=== PATIENT | male | born 1945 | race Caucasian/White ===

== ENCOUNTER → 2017-08-15 | Outpatient (CLI) | payer BC ==
--- NOTE | 2017-08-15 12:26 | DIAGNOSTIC IMAGING REPORT ---
TWO VIEW CHEST CLINICAL HISTORY: Cough. FINDINGS: PA and lateral chest radiographs are compared to study dated 03/12/2014. The heart is mildly enlarged. The pulmonary vasculature is noncongested. Findings suggest obstructive physiology. Chronic interstitial thickening is similar to previous. No airspace consolidation or pleural effusion is identified. There is no pneumothorax. The skeletal structures are osteopenic. There are healed right sided rib fractures Peter arthritic change is noted in the shoulders. IMPRESSION: Cardiac enlargement and suspect obstructive physiology. There is no active disease in the chest. Electronically signed by: Adi Reyes M.D. 08/15/2017 12:24 PM Dictated Date/Time: 08/15/2017 12:23 PM
== END | disposition home or self-care (01) ==
LOC: C.RAD 12:04
PROVIDERS: ATTEND Family Medicine
DX: R05 Cough (principal); I51.7 Cardiomegaly

== ENCOUNTER 2020-10-12 18:38 | Observation (INO) ==
[2020-10-12] MEDS ORDERED: HYDROcodone/HOMATROPINE SYRUP 5MG/1.5MG 5ML UDP PO STA (19:12)
[2020-10-12] MEDS ORDERED: ALBUTEROL HFA 8 GM INHALER INH ONE (19:12)
[2020-10-12] MEDS ORDERED: ONDANSETRON INJ 2 MG/ML 2 ML VIAL IV STA (19:12)
[2020-10-12] MEDS ORDERED: DEXAMETHASONE SOD INJ 10 MG/ML VIAL IV ONE (19:15)
[2020-10-12 20:10] LABS: Basophils # (auto) 0.06 K/uL (0-0.2); Basophils % (auto) 0.8 %; Eosinophils # (auto) 0.09 K/uL (0-0.5); Eosinophils % (auto) 1.2 %; Hematocrit (blood only) 40.5 % (42-52); Hemoglobin 13.5 g/dL (14.0-18.0); Immature Granulocytes # (auto) 0.03 K/uL (0.00-0.02); Immature Granulocytes % (auto) 0.4 %; Lymphocytes # (auto) 2.15 K/uL (1.2-3.4); Lymphocytes % (auto) 29.8 %; Mean Corpuscular Hemoglobin 28.9 pg (25-34); Mean Corpuscular Hgb Conc 33.3 g/dL (32-36); Mean Corpuscular Volume 86.7 fL (80-100); Mean Platelet Volume 10.3 fL (7.4-10.4); Monocytes # (auto) 0.92 K/uL (0.11-0.59); Monocytes % (auto) 12.7 %; Neutrophils # (auto) 3.97 K/uL (1.4-6.5); Neutrophils % (auto) 55.1 %; Platelet Count 167 K/uL (130-400); RDW Coefficient of Variation 13.6 % (11.5-14.5); RDW Standard Deviation 43.2 fL (36.4-46.3); Red Blood Count 4.67 M/uL (4.7-6.1); White Blood Count 7.22 K/uL (4.8-10.8)
[2020-10-12 20:28] LABS: Alanine Aminotransferase 52 U/L (12-78); Albumin Level 3.3 gm/dl (3.4-5.0); Aspartate Aminotransferase 26 U/L (15-37); BUN Creatinine Ratio 21.5 (10-20); Blood Urea Nitrogen 23 mg/dl (7-18); Calcium 8.9 mg/dl (8.5-10.1); Carbon Dioxide 27 mmol/L (21-32); Chloride 103 mmol/L (98-107); Creatinine Clr Calc Pharmacy 69.9 ml/min; Est GFR (Non-African American) 67.3; Glucose 128 mg/dl (70-99); Potassium 4.7 mmol/L (3.5-5.1); Sodium 135 mmol/L (136-145)
[2020-10-12 20:33] LABS: Albumin Globulin Ratio 0.7 (0.9-2); Alkaline Phosphatase 120 U/L (45-117); Bilirubin,Total 0.7 mg/dl (0.2-1); Globulin 4.4 gm/dl (2.5-4.0); Total Protein 7.7 gm/dl (6.4-8.2); Troponin I < 0.015 ng/ml (0-0.045)
--- NOTE | 2020-10-12 20:45 | Emergency Department Note ---
Impression & Plan COVID-19 virus infection, SOB (shortness of breath) ED Provider Note INFORMANT: Patient ED PROVIDER(S): Ahsan Strong MD CHIEF COMPLAINT: Fever PLAN: Disposition: Admitted Condition: Good MEDICAL DECISION MAKING: Patient presented to the emergency department because of worsening flulike symptoms. He was diagnosed with COVID-19. He feels like he is more short of breath and getting worse. He had O2 saturations of 92% on my evaluation. With several deep breaths and coughing he did move up to 95%. He had an IV established. ECG did not show any ischemia. Chest x-ray does show some mild pneumonitis in the bases. The patient was given IV Decadron, albuterol MDI, Hycodan, and Zofran. Patient declined Hycodan. Patient's ECG was nonischemic. CBC was unremarkable. Chemistry panel revealed mild dehydration. Troponin was negative. Repeat Covid testing was requested by internal medicine this was done and was positive. The patient will need to be admitted for further treatment. He was evaluated by Dr. Fransisco Reaves in the emergency department and admitted. Triage Nursing notes reviewed and agree them. Prior medical records reviewed regarding his prior visits. CT study from last visit did not reveal any thromboembolic disease. Vital Signs: reviewed and remarkable for a pulse oximetry of 92% Differential diagnosis: Complication of COVID-19, reactive airway disease, pneumonia, pneumothorax, COPD, CHF, infections, cardiac ischemia, pulmonary embolism, musculoskeletal, gastrointestinal, as well as other pathologies. Diagnostics interpreted by me: ECG:Rate: 87 Rhythm:Normal sinus Bonaparte:Normal QRS:Normal ST segements:No elevation or depression Other:No PACs or PVCs Cardiac Monitoring: None Imaging studies: Chest x-ray reveals mild pneumonitis. No free air. No mediastinum. No pneumothorax. Consultation(s): [facility] service HPI: The patient is a 74 year old male who presents to the Emergency Room with complaints of fever. This started last week and is from the patient being diagnosed with COVID-19. He states he feels like he is getting worse. He has more difficulty breathing. He feels short of breath and has chest discomfort with nausea. He has dyspnea on exertion. Despite being treated conservatively as an outpatient and having 2 ER visits he is feeling worse. The patient was seen in the emergency department a second time and CT scan was performed. No thromboembolic disease was noted. Mild changes consistent with viral pneumonitis noted. Current pain is rated as 6/10. Pt denies LOC, headache, diaphoresis, visual changes, neck pain, vomiting, abdominal pain, back pain, melena, hematochezia, urinary symptoms, numbness, weakness, lymphadenopathy, rash, or other complaints. ROS: See above HPI for pertinent positives & negatives. A total of 10 systems reviewed and were otherwise negative. PAST MEDICAL HISTORY:See Below, GERD PAST SURGICAL HISTORY:See Below, FAMILY HISTORY:See Below SOCIAL HISTORY:See Below, HOME MEDICATIONS:See Below ALLERGIES:See Below VITALS:See Below PHYSICAL EXAMINATION: GENERAL: Awake, alert, dyspneic-appearing, in no distress HENT: Normocephalic, atraumatic. Oropharynx unremarkable. EYES: Normal conjunctiva. Sclera non-icteric. NECK: Inspection normal. Non-tender. Supple. No nuchal rigidity. FROM. No masses. RESPIRATORY: Coarse breath sounds. No wheezes. No rales. Increased respiratory effort. CARDIAC: Normal rate. Normal rhythm. No murmurs. No rubs. Extremities warm and well perfused. Pulses equal. No JVD. GI: Soft, non-distended. No tenderness to palpation. No rebound or guarding. No masses. RECTAL: Deferred. MUSCULOSKELETAL: Atraumatic. Chest examination reveals no tenderness. The back is symmetrical on inspection without obvious abnormality. There is no CVA tenderness to palpation. No joint edema. LOWER EXTREMITIES: Calves are equal size bilaterally and non-tender. No edema. No discoloration. NEURO: Normal sensorium. No sensory or motor deficits noted. SKIN: No rash or jaundice noted. Ahsan Strong MD Past Med/Surg History Medical History (Updated 10/12/20 @ 20:41 by Ahsan Strong MD) Chronic back pain Enlarged prostate Prostate enlargement Family History Other Family history non-contributory Social History Smoking Status: Former smoker Hx Alcohol Use: No Preferred Language: Malaysian marital status: current occupational status: retired Feels Safe at Home: Yes Allergies Allergies Allergy/AdvReac Type Severity Reaction Status Date / Time Sulfa (Sulfonamide Allergy Unknown Unknown Verified 10/12/20 20:08 Antibiotics) codeine Allergy Unknown Verified 10/12/20 20:08 red dye AdvReac Mild Nausea Verified 10/12/20 20:08 Home Meds Home Medications Medication Instructions Recorded Confirmed omeprazole 20 mg PO HS 07/22/18 10/12/20 trazodone 50 mg PO HS 07/22/18 10/12/20 [id number] 2 tab PO UD PRN 09/30/20 10/12/20 [Excedrin Migraine] Previous Rx's Medication Instructions Recorded albuterol sulfate 2 puff INHALATION Q4H PRN #6.7 g 10/06/20 Results & Data (ED) Vital Signs Vital Signs - 24 hr 10/12/20 18:40 10/12/20 19:00 10/12/20 19:29 Temperature 37.2 C Temperature Source Skin Pulse Rate 107 H 82 Pulse Rate [Apical] Pulse Rate from SpO2 Sensor 82 Respiratory Rate 22 19 Respiratory Depth Normal Blood Pressure 158/97 H Blood Pressure [Left Arm] Blood Pressure Mean 117 Blood Pressure Mean [Left Arm] Pulse Oximetry 95 92 93 Oxygen Delivery Method Room Air Room Air Room Air Sepsis Recent Fever Within 48 Hours Yes Sepsis New/Unexplained Change in Mental Status N/A Sepsis Action Taken by Nursing No Action Required 10/12/20 20:10 10/12/20 20:30 10/12/20 21:09 Temperature 38.1 C H Temperature Source Oral Pulse Rate 91 H Pulse Rate [Apical] Pulse Rate from SpO2 Sensor 90 100 H Respiratory Rate 22 20 Respiratory Depth Blood Pressure 131/78 Blood Pressure [Left Arm] Blood Pressure Mean 88 Blood Pressure Mean [Left Arm] Pulse Oximetry 94 93 Oxygen Delivery Method Room Air Room Air Sepsis Recent Fever Within 48 Hours Sepsis New/Unexplained Change in Mental Status Sepsis Action Taken by Nursing 10/12/20 21:12 10/12/20 21:30 10/12/20 22:01 Temperature Temperature Source Pulse Rate 87 99 H Pulse Rate [Apical] 94 H Pulse Rate from SpO2 Sensor 88 Respiratory Rate 22 21 22 Respiratory Depth Blood Pressure 126/75 154/93 H Blood Pressure [Left Arm] 122/66 Blood Pressure Mean 100 131 Blood Pressure Mean [Left Arm] 84 Pulse Oximetry 93 93 Oxygen Delivery Method Room Air Room Air Room Air Sepsis Recent Fever Within 48 Hours Sepsis New/Unexplained Change in Mental Status Sepsis Action Taken by Nursing 10/12/20 22:30 10/12/20 22:38 10/12/20 23:12 Temperature 37.6 C H Temperature Source Oral Pulse Rate 91 H Pulse Rate [Apical] 88 Pulse Rate from SpO2 Sensor Respiratory Rate 18 20 Respiratory Depth Blood Pressure 132/80 Blood Pressure [Left Arm] 140/92 Blood Pressure Mean 100 Blood Pressure Mean [Left Arm] 108 Pulse Oximetry 93 Oxygen Delivery Method Room Air Room Air Sepsis Recent Fever Within 48 Hours Sepsis New/Unexplained Change in Mental Status Sepsis Action Taken by Nursing 10/13/20 00:26 Temperature Temperature Source Pulse Rate Pulse Rate [Apical] 84 Pulse Rate from SpO2 Sensor Respiratory Rate 20 Respiratory Depth Blood Pressure Blood Pressure [Left Arm] 134/81 Blood Pressure Mean Blood Pressure Mean [Left Arm] 98 Pulse Oximetry 94 Oxygen Delivery Method Room Air Sepsis Recent Fever Within 48 Hours Sepsis New/Unexplained Change in Mental Status Sepsis Action Taken by Nursing Laboratory Data Result diagrams: 10/12/20 19:41 10/12/20 19:41 Lab Results 10/12/20 10/12/20 10/12/20 Range/Units 19:41 19:41 19:41 WBC 7.22 (4.8-10.8) K/uL RBC 4.67 L (4.7-6.1) M/uL Hgb 13.5 L (14.0-18.0) g/dL Hct 40.5 L (42-52) % MCV 86.7 (80-100) fL MCH 28.9 (25-34) pg MCHC 33.3 (32-36) g/dL RDW Std Deviation 43.2 (36.4-46.3) fL RDW Coeff of Ml 13.6 (11.5-14.5) % Plt Count 167 (130-400) K/uL MPV 10.3 (7.4-10.4) fL Immature Gran % (Auto) 0.4 % Neut % (Auto) 55.1 % Lymph % (Auto) 29.8 % [place] % (Auto) 12.7 % Eos % (Auto) 1.2 % Baso % (Auto) 0.8 % Neut # (Auto) 3.97 (1.4-6.5) K/uL Lymph # (Auto) 2.15 (1.2-3.4) K/uL [place] # (Auto) 0.92 H (0.11-0.59) K/uL Eos # (Auto) 0.09 (0-0.5) K/uL Baso # (Auto) 0.06 (0-0.2) K/uL Immature Gran # (Auto) 0.03 H (0.00-0.02) K/uL Sodium 135 L (136-145) mmol/L Potassium 4.7 (3.5-5.1) mmol/L Chloride 103 (98-107) mmol/L Carbon Dioxide 27 (21-32) mmol/L Anion Gap 5.0 (3-11) BUN 23 H (7-18) mg/dl Creatinine 1.08 (0.6-1.4) mg/dl Est Cr Clr Drug Dosing 69.9 ml/min Est GFR ( Amer) 78.0 Est GFR (Non-Af Amer) 67.3 BUN/Creatinine Ratio 21.5 H (10-20) Glucose 128 H (70-99) mg/dl Calcium 8.9 (8.5-10.1) mg/dl Total Bilirubin 0.7 (0.2-1) mg/dl AST 26 (15-37) U/L ALT 52 (12-78) U/L Alkaline Phosphatase 120 H (45-117) U/L Troponin I < 0.015 (0-0.045) ng/ml Total Protein 7.7 (6.4-8.2) gm/dl Albumin 3.3 L (3.4-5.0) gm/dl Globulin 4.4 H (2.5-4.0) gm/dl Albumin/Globulin Ratio 0.7 L (0.9-2) Procalcitonin 0.19 (0-0.5) ng/ml COVID-19 Eval Order SARS-CoV-2, RNA, NAAT (NEGATIVE) Blood Type Antibody Screen 10/12/20 10/12/20 10/12/20 Range/Units 21:13 23:22 23:22 WBC (4.8-10.8) K/uL RBC (4.7-6.1) M/uL Hgb (14.0-18.0) g/dL Hct (42-52) % MCV (80-100) fL MCH (25-34) pg MCHC (32-36) g/dL RDW Std Deviation (36.4-46.3) fL RDW Coeff of Ml (11.5-14.5) % Plt Count (130-400) K/uL MPV (7.4-10.4) fL Immature Gran % (Auto) % Neut % (Auto) % Lymph % (Auto) % [place] % (Auto) % Eos % (Auto) % Baso % (Auto) % Neut # (Auto) (1.4-6.5) K/uL Lymph # (Auto) (1.2-3.4) K/uL [place] # (Auto) (0.11-0.59) K/uL Eos # (Auto) (0-0.5) K/uL Baso # (Auto) (0-0.2) K/uL Immature Gran # (Auto) (0.00-0.02) K/uL Sodium (136-145) mmol/L Potassium (3.5-5.1) mmol/L Chloride (98-107) mmol/L Carbon Dioxide (21-32) mmol/L Anion Gap (3-11) BUN (7-18) mg/dl Creatinine (0.6-1.4) mg/dl Est Cr Clr Drug Dosing ml/min Est GFR ( Amer) Est GFR (Non-Af Amer) BUN/Creatinine Ratio (10-20) Glucose (70-99) mg/dl Calcium (8.5-10.1) mg/dl Total Bilirubin (0.2-1) mg/dl AST (15-37) U/L ALT (12-78) U/L Alkaline Phosphatase (45-117) U/L Troponin I (0-0.045) ng/ml Total Protein (6.4-8.2) gm/dl Albumin (3.4-5.0) gm/dl Globulin (2.5-4.0) gm/dl Albumin/Globulin Ratio (0.9-2) Procalcitonin (0-0.5) ng/ml COVID-19 [facility] SARS-CoV-2, RNA, NAAT POSITIVE A* (NEGATIVE) Blood Type O Positive Antibody Screen NEGATIVE Administered Medications Discontinued Medications Acetaminophen (Acetaminophen 500 Mg Tab) 1,000 mg PO NOW STA Stop: 10/12/20 21:15 Last Admin: 10/12/20 21:51 Dose: 1,000 mg Documented by: [id number] Albuterol (Albuterol Hfa 8 Gm Inhaler) 2 puffs INH NOW ONE Stop: 10/12/20 19:13 Last Admin: 10/12/20 19:55 Dose: 2 puffs Documented by: [id number] Dexamethasone (Dexamethasone Sod Inj 10 Mg/Ml Vial) 6 mg IV NOW ONE Stop: 10/12/20 19:16 Last Admin: 10/12/20 19:54 Dose: 6 mg Documented by: [id number] Hydrocodone Bit/Homatropine Methylb (Hydrocodone/Homatropine Syrup 5mg/1.5mg 5ml Udp) 5 ml PO NOW STA Stop: 10/12/20 19:13 Last Admin: 10/12/20 19:53 Dose: Not Given Documented by: [id number] Ondansetron HCl (Ondansetron Inj 2 Mg/Ml 2 Ml Vial) 4 mg IV NOW STA Stop: 10/12/20 19:13 Last Admin: 10/12/20 19:54 Dose: 4 mg Documented by: [id number] Discharge Plan Visit Data Chief Complaint: Fever Stated Complaint: fever, cough, body aches ED Provider: Ahsan Strong Discharge Problem: COVID-19 virus infection, SOB (shortness of breath) Forms Stand Alone Forms: [facility] Prescriptions Prescriptions: No Action trazodone 50 mg tablet 50 mg PO HS RF: 0 omeprazole 20 mg capsule,delayed release(DR/EC) 20 mg PO HS RF: 0 Excedrin Migraine 250-250-65 mg Tablet 2 tab PO UD PRN (Reason: Headache) RF: 0 albuterol sulfate 90 mcg/actuation HFA aerosol inhaler 2 puff inhalation Q4H PRN (Reason: shortness of breath or wheezing) Qty: 6.7 RF: 0
[2020-10-12] MEDS ORDERED: ACETAMINOPHEN 500 MG TAB PO STA (21:14)
[2020-10-13] MEDS: ALBUTEROL HFA 8 GM INHALER INH SCH ×3 (02:05→11:42)
[2020-10-13] MEDS ORDERED: NON-FORMULARY MEDICATION (Aspirin-Acetaminophen-Caffeine [Excedrin Migraine] 250-250-65 mg PO PRN (02:17)
[2020-10-13] MEDS ORDERED: ACETAMINOPHEN 325 MG TAB PO PRN (02:17)
[2020-10-13] MEDS ORDERED: ONDANSETRON INJ 2 MG/ML 2 ML VIAL IV PRN (02:17)
[2020-10-13] MEDS ORDERED: cefTRIAXone SODIUM 2,000 MG in DEXTROSE 5% 50 ML IV SCH (04:00)
--- NOTE | 2020-10-13 05:15 | History & Physical Report ---
Date of Service October 13, 2020 Assessment & Plan (1) Pneumonia due to COVID-19 virus: Pneumonia due to COVID-19 virus with hypoxia- Return of symptoms may be suggestive of secondary bacterial infection Dexamethasone 6 mg IV every morning Ceftriaxone 2 g IV daily Azithromycin 500 mg IV daily Ventolin HFA 2 puffs 4 times daily, and every 2 hours as needed Zinc sulfate 220 mg p.o. every morning Present on Admission?: Yes (2) Hypoxia: See above Present on Admission?: Yes (3) GERD (gastroesophageal reflux disease): Change omeprazole to pantoprazole Present on Admission?: Yes (4) Insomnia: Continue trazodone 50 mg at bedtime Present on Admission?: Yes (5) Migraine: Excedrin Migraine as needed Present on Admission?: Yes Admission and Anticipated Discharge Date Admission Date: October 13, 2020 History of Present Illness Chief Complaint: The patient presents to the emergency department with worsening shortness of breath, generalized myalgias and temperature, with a history of positive COVID-19 testing on 09/24 Primary Care Provider: Florencio Lema MD The patient is a 74-year-old male with a past medical history including enlarged prostate, back strain and COVID-19 positive test on 09/24. He felt that he been doing reasonably well for a while, but over the past few days he has gotten worsening symptoms as noted. Work-up in the emergency department included the following abnormal laboratories: Albumin 3.3, glucose 128, hemoglobin 13.5, sodium 135. Repeat COVID-19 testing positive in the ED tonight Pulse oximetry in the ED revealed a low of 92% on room air and improved to 96% on 2 L nasal cannula oxygen. Temperature in the emergency department was 100.[address] angiography performed on 10/06 was negative for pulmonary embolism, did show groundglass opacities bilaterally. Allergies Allergy/AdvReac Type Severity Reaction Status Date / Time Sulfa (Sulfonamide Allergy Unknown Unknown Verified 10/12/20 20:08 Antibiotics) codeine Allergy Unknown Verified 10/12/20 20:08 red dye AdvReac Mild Nausea Verified 10/12/20 20:08 Home Medications Medication Instructions Recorded Confirmed Type omeprazole 20 mg PO HS 07/22/18 10/12/20 History trazodone 50 mg PO HS 07/22/18 10/12/20 History [id number]-pxmxeowxelxiy-cuempiqj 2 tab PO UD PRN 09/30/20 10/12/20 History [Excedrin Migraine] albuterol sulfate 2 puff INHALATION Q4H PRN #6.7 g 10/06/20 10/12/20 Rx Past Med/Surg History Medical History (Updated 10/13/20 @ 05:13 by Fransisco Reaves MD) Chronic back pain Enlarged prostate GERD (gastroesophageal reflux disease) Insomnia Migraine Prostate enlargement Family History Other Family history non-contributory Social History Smoking Status: Former smoker Cigarettes Per Day: 2 packs; Second Hand Exposure: No; Do You Dip or Chew Tobacco: No; Tobacco Cessation Education Requested by Patient: No Hx Alcohol Use: No Hx Substance Use: No Preferred Language: Panamanian Communication Ability: Effective 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 Beliefs That Will Affect Care: None marital status: Current Living Situation: Alone current occupational status: retired Other Information That Helps Us Care for You: No Feels Safe at Home: Yes Safety Concerns: Feels Safe At This Time Assistive Devices: Glasses Review of Systems Review of Systems: The patient denies chest pain, palpitations, cough, lower extremity swelling, sore throat, chills, sweats, nausea, vomiting, diarrhea , constipation, abdominal pain, pelvic pain, blood in urine or stool, dysuria, urinary frequency or urgency, lightheadedness, dizziness, headache, memory loss, loss of consciousness, rash, abnormal bruising or bleeding, imbalance, focal weakness, numbness or tingling in arms or legs, back or neck pain, or night sweats. The review of systems is otherwise negative other than for that already noted above, and at least 10 systems have been reviewed. Physical Exam Physical Exam: The patient is awake, alert and oriented 3, well developed and well nourished, normocephalic and atraumatic, lying in bed and in no acute distress. HEENT--PERRL, EOMI, mucous membranes and oropharynx normal. Neck--supple. No JVD. No bruits. Thyroid normal, trachea midline, no adenopathy. Heart--normal S1 and S2. No murmurs, rubs or gallops. Lungs--coarse breath sounds bilaterally. No respiratory distress, no accessory muscle use. Abdomen--normal bowel sounds and soft. Nontender. Nondistended. Extremities--no cyanosis or clubbing. No edema. Dermatologic--normal skin turgor, normal color, no abnormal lymph nodes, no rash. Neurologic--cranial nerves II through XII grossly intact. Rheumatologic--normal range of motion. Psychiatric--normal affect. Results & Data Results & Data ([facility]) Vital Signs (Past 12 Hours) Vital Signs Temp Pulse Pulse Pulse Resp BP BP 10/13/20 04:12 75 10/13/20 02:17 10/13/20 02:05 81 20 10/13/20 02:00 98.8 F 71 20 10/13/20 01:23 85 20 130/84 10/13/20 00:26 84 20 134/81 10/12/20 23:12 88 20 140/92 10/12/20 22:38 99.7 F H 10/12/20 22:30 91 H 18 132/80 10/12/20 22:01 99 H 22 154/93 H 10/12/20 21:30 87 21 126/75 10/12/20 21:12 94 H 22 122/66 10/12/20 21:09 100.6 F H 10/12/20 20:30 20 10/12/20 20:10 91 H 22 131/78 10/12/20 19:29 82 19 10/12/20 19:00 10/12/20 18:40 99.0 F 107 H 22 158/97 H BP Pulse Ox Pulse Ox 10/13/20 04:12 10/13/20 02:17 95 10/13/20 02:05 96 10/13/20 02:00 115/68 95 10/13/20 01:23 93 10/13/20 00:26 94 10/12/20 23:12 93 10/12/20 22:38 10/12/20 22:30 10/12/20 22:01 10/12/20 21:30 93 10/12/20 21:12 93 10/12/20 21:09 10/12/20 20:30 93 10/12/20 20:10 94 10/12/20 19:29 93 10/12/20 19:00 92 10/12/20 18:40 95 Laboratory Results Laboratory Results WBC 7.22 K/uL (4.8-10.8) 10/12/20 19:41 RBC 4.67 M/uL (4.7-6.1) L 10/12/20 19:41 Hgb 13.5 g/dL (14.0-18.0) L 10/12/20 19:41 Hct 40.5 % (42-52) L 10/12/20 19:41 MCV 86.7 fL (80-100) 10/12/20 19:41 MCH 28.9 pg (25-34) 10/12/20 19:41 MCHC 33.3 g/dL (32-36) 10/12/20 19:41 RDW Std Deviation 43.2 fL (36.4-46.3) 10/12/20 19:41 RDW Coeff of Ml 13.6 % (11.5-14.5) 10/12/20 19:41 Plt Count 167 K/uL (130-400) 10/12/20 19:41 MPV 10.3 fL (7.4-10.4) 10/12/20 19:41 Immature Gran % (Auto) 0.4 % 10/12/20 19:41 Neut % (Auto) 55.1 % 10/12/20 19:41 Lymph % (Auto) 29.8 % 10/12/20 19:41 Walker % (Auto) 12.7 % 10/12/20 19:41 Eos % (Auto) 1.2 % 10/12/20 19:41 Baso % (Auto) 0.8 % 10/12/20 19:41 Neut # (Auto) 3.97 K/uL (1.4-6.5) 10/12/20 19:41 Lymph # (Auto) 2.15 K/uL (1.2-3.4) 10/12/20 19:41 [place] # (Auto) 0.92 K/uL (0.11-0.59) H 10/12/20 19:41 Eos # (Auto) 0.09 K/uL (0-0.5) 10/12/20 19:41 Baso # (Auto) 0.06 K/uL (0-0.2) 10/12/20 19:41 Immature Gran # (Auto) 0.03 K/uL (0.00-0.02) H 10/12/20 19:41 Sodium 135 mmol/L (136-145) L 10/12/20 19:41 Potassium 4.7 mmol/L (3.5-5.1) 10/12/20 19:41 Chloride 103 mmol/L (98-107) 10/12/20 19:41 Carbon Dioxide 27 mmol/L (21-32) 10/12/20 19:41 Anion Gap 5.0 (3-11) 10/12/20 19:41 BUN 23 mg/dl (7-18) H 10/12/20 19:41 Creatinine 1.08 mg/dl (0.6-1.4) 10/12/20 19:41 Est Cr Clr Drug Dosing 69.9 ml/min 10/12/20 19:41 Est GFR ( Amer) 78.0 10/12/20 19:41 Est GFR (Non-Af Amer) 67.3 10/12/20 19:41 BUN/Creatinine Ratio 21.5 (10-20) H 10/12/20 19:41 Glucose 128 mg/dl (70-99) H 10/12/20 19:41 Calcium 8.9 mg/dl (8.5-10.1) 10/12/20 19:41 Total Bilirubin 0.7 mg/dl (0.2-1) 10/12/20 19:41 AST 26 U/L (15-37) 10/12/20 19:41 ALT 52 U/L (12-78) 10/12/20 19:41 Alkaline Phosphatase 120 U/L (45-117) H 10/12/20 19:41 Troponin I < 0.015 ng/ml (0-0.045) 10/12/20 19:41 Total Protein 7.7 gm/dl (6.4-8.2) 10/12/20 19:41 Albumin 3.3 gm/dl (3.4-5.0) L 10/12/20 19:41 Globulin 4.4 gm/dl (2.5-4.0) H 10/12/20 19:41 Albumin/Globulin Ratio 0.7 (0.9-2) L 10/12/20 19:41 Procalcitonin 0.19 ng/ml (0-0.5) 10/12/20 19:41 COVID-19 Eval Order Covid19 [facility] 10/12/20 23:22 SARS-CoV-2, RNA, NAAT POSITIVE (NEGATIVE) A* 10/12/20 23:22 Blood Type O Positive 10/12/20 21:13 Antibody Screen NEGATIVE 10/12/20 21:13 Diagnostic Findings [facility], [id number] CT Scan Report Patient: RACHID JUAREZ Date: 10/06/20#: [id number]: [address] ID:[id number]: [facility] Zip: [place], [place] [address]Iog: 74Location: EDSex: MRoom/Bed:Att Phy:Diagnosis: CHEST TIGHTNESS,SOB,SENT FOR REPEAT CXRPri Phy: Florencio Lema MDService Date: 10/06/20Fa Phy:Interpreting Phy: Dale Carvalho [facility] Phy: Ordering Phy: Kathleen Denton CRNP cc: ~ CT ANGIOGRAPHY OF THE CHEST, PULMONARY EMBOLUS PROTOCOL CLINICAL HISTORY: worsening SOB, + covid COMPARISON STUDY: Chest radiograph September 30, 2020. TECHNIQUE: Following IV administration of 120 mL of Optiray-320, helical axial images of the chest were obtained utilizing the pulmonary embolus protocol. Maximal intensity projections and sagittal and coronal reformats were viewed on an independent 3D workstation. IV contrast was administered without complication. Automated exposure control was utilized for the study. A dose lowering technique was utilized adhering to the principles of ALARA. CT DOSE: 528.74 mGycm FINDINGS: No pulmonary emboli are identified. The heart is moderately enlarged. There is no pericardial effusion. Incidental note is made of a right-sided aortic arch. No enlarged axillary, mediastinal or hilar lymph nodes are present. Central airways are patent. There is no pneumothorax or pleural effusion. Groundglass opacities within the lungs favor atelectasis. There is no consolidation. Several calcified granulomas are present. There are old right rib fractures. A few hypodense left hepatic lobe lesions probably reflect cysts. IMPRESSION: 1. No pulmonary emboli identified. 2. Groundglass opacities within the lungs which favor atelectasis. No consolidation. 3. Moderate cardiomegaly. Right-sided aortic arch. ACT 112: Negative or not required by law. Electronically signed by: Dale Carvalho M.D. 10/06/2020 3:46 PM Dictated: 10/06/20 1537Transcribed: 10/06/20 1538 Code Status & VTE Plan Code Status Full code VTE Prophylaxis Plan VTE Prophylaxis will be ordered: Yes PG Care Time/CCT Total # of Minutes Spent Total Time Spent with Patient: Total time spent is greater than 50% in coordination of care (as documented) at patient's floor/unit and/or counseling patient: Coding Level of Care Code 11711 Initial Inpt Care Lvl 3 Diagnoses Pneumonia due to COVID-19 virus U07.1; J12.89 Hypoxia R09.02 GERD (gastroesophageal reflux disease) K21.9 Insomnia G47.00 Migraine G43.909
--- NOTE | 2020-10-13 08:15 | XRay Report ---
XR chest 1V portable HISTORY: Shortness of breath. Positive Covid. COMPARISON: Chest 09/30/2020. FINDINGS: No pneumothorax. No pleural effusions. The heart is mildly enlarged. Hazy densities at the lung bases are suggested. There is mild diffuse interstitial thickening. There is a tortuous thoracic aorta. IMPRESSION: 1. Hazy densities of the lung bases may represent atelectasis or pneumonia. This remains unchanged. 2. Stable cardiomegaly. ACT 112: Negative or not required by law. Electronically signed by: Rojelio Ferreira M.D. 10/13/2020 8:14 AM
[2020-10-13] MEDS ORDERED: dexAMETHasone 6 MG in SYRINGE 0 ML IV SCH (09:00)
[2020-10-13] MEDS ORDERED: AZITHROMYCIN 500 MG in DEXTROSE 5% 250 ML IV SCH (09:00)
[2020-10-13] MEDS ORDERED: ZINC SULFATE 220 MG CAPSULE PO SCH (09:00)
--- NOTE | 2020-10-13 09:44 | Hospitalist Progress Note ---
Date of Service October 13, 2020 Assessment & Plan (1) Pneumonia due to COVID-19 virus: Pneumonia due to COVID-19 virus with hypoxia- Return of symptoms may be suggestive of secondary bacterial infection Dexamethasone 6 mg IV every morning Ceftriaxone 2 g IV daily Azithromycin 500 mg IV daily Ventolin HFA 2 puffs 4 times daily, and every 2 hours as needed Zinc sulfate 220 mg p.o. every morning (2) Hypoxia: See above (3) GERD (gastroesophageal reflux disease): Change omeprazole to pantoprazole (4) Insomnia: Continue trazodone 50 mg at bedtime (5) Migraine: Excedrin Migraine as needed Admission and Anticipated Discharge Date Admission Date: October 13, 2020 Results & Data Results & Data ([facility]) Vital Signs (Past 12 Hours) Vital Signs Temp Pulse Pulse Pulse Resp BP BP 10/13/20 09:00 63 10/13/20 08:43 98.2 F 85 20 10/13/20 08:15 68 18 10/13/20 04:12 75 10/13/20 02:17 10/13/20 02:05 81 20 10/13/20 02:00 98.8 F 71 20 10/13/20 01:23 85 20 130/84 10/13/20 00:26 84 20 134/81 10/12/20 23:12 88 20 140/92 10/12/20 22:38 99.7 F H 10/12/20 22:30 91 H 18 132/80 10/12/20 22:01 99 H 22 154/93 H BP Pulse Ox Pulse Ox 10/13/20 09:00 93 10/13/20 08:43 99/65 L 93 10/13/20 08:15 99 10/13/20 04:12 10/13/20 02:17 95 10/13/20 02:05 96 10/13/20 02:00 115/68 95 10/13/20 01:23 93 10/13/20 00:26 94 10/12/20 23:12 93 10/12/20 22:38 10/12/20 22:30 10/12/20 22:01 PG Care Time/CCT Total # of Minutes Spent Total Time Spent with Patient: Total time spent is greater than 50% in coordination of care (as documented) at patient's floor/unit and/or counseling patient: Coding Diagnoses Pneumonia due to COVID-19 virus U07.1; J12.89 Hypoxia R09.02 GERD (gastroesophageal reflux disease) K21.9 Insomnia G47.00 Migraine G43.909
--- NOTE | 2020-10-13 19:18 | Discharge Summary ---
Date of Service October 13, 2020 Admission HPI Per Admitting Provider The patient is a 74-year-old male with a past medical history including enlarged prostate, back strain and COVID-19 positive test on 09/24. He felt that he been doing reasonably well for a while, but over the past few days he has gotten worsening symptoms as noted. Work-up in the emergency department included the following abnormal laboratories: Albumin 3.3, glucose 128, hemoglobin 13.5, sodium 135. Repeat COVID-19 testing positive in the ED tonight Pulse oximetry in the ED revealed a low of 92% on room air and improved to 96% on 2 L nasal cannula oxygen. Temperature in the emergency department was 100.[address] angiography performed on 10/06 was negative for pulmonary embolism, did show groundglass opacities bilaterally. Principal Diagnosis Persistent Covid infection with dyspnea Discharge Exam The patient appeared non toxic Vital signs as documented. Lungs are rales at the bases which clear at the apex Cardiac exam, Rhythm is regular.. No murmurs, rubs or gallops. Abdominal exam reveals normal bowel sounds, soft non tender, no masses Extremities are nonedematous and both pedal pulses are normal. Neurologic exam is alert and oriented, no focal loss of strength or sensation Skin is without bruises or rashes Psychologically is without concerns for anxiety or depression. Discharge Data Allergies Allergy/AdvReac Type Severity Reaction Status Date / Time Sulfa (Sulfonamide Allergy Unknown Unknown Verified 10/12/20 20:08 Antibiotics) codeine Allergy Unknown Verified 10/12/20 20:08 red dye AdvReac Mild Nausea Verified 10/12/20 20:08 Consultations 10/12/20 22:07 ED Decision to Admit Stat 10/13/20 02:17 Consult Case Management - Discharge Planning Routine Hospital Course (1) Pneumonia due to COVID-19 virus: Pneumonia due to COVID-19 virus with hypoxia- Pt will be discharged home on azithro and prednisone po for 5 additional days (2) Hypoxia: See above (3) GERD (gastroesophageal reflux disease): continue ppi (4) Insomnia: Continue trazodone 50 mg at bedtime (5) Migraine: Excedrin Migraine as needed Total Time Total Time Spent Total Time Spent (In Minutes): It required greater than 30 minutes to prepare this patient for discharge Discharge Plan Discharge Items Patient Disposition: Home - Home Health Services Reason For Visit: COVID-19 INFECTION WITH HYPOXIA Discharge Diagnosis: covid pneumonia Activity: Per Instructions section Activity Comment: slowly increase activity Non-emergency contact: Primary Care Provider Call non-emergency contact if: you have any medication questions Follow-up/Referrals: Florencio Lema MD [Primary Care Provider] - 10/20/20 3:10 pm (DR BAIG'S OFFICE WILL SENT YOU A LINK THRU YOUR EMAIL. ZOOM APPT WITH [facility]. ANY QUESTIONS PLEASE CALL OFFICE.) Diet: Regular Addtl Attending Provider Instructions: Coronavirus disease 2019 (COVID-19) is a virus that causes a respiratory illness. It is caused by a coronavirus called 2019 novel coronavirus (2019- nCoV). There are many types of coronavirus. Coronaviruses are a very common cause of bronchitis. They may sometimes cause lung infection(pneumonia). Symptoms can range from mild to severe respiratory illness. These viruses are also foundin some animals. COVID-19 was first found in people in [facility], in late 2018. In 2020, several cases of COVID-19 have been confirmed in the [place] Public health officials are working to find the source. How the virus spreads is not yet fully known. It may be spread through droplets of fluid that a person coughs or sneezes into the air. It may be spread if you touch a surface with virus on it, such as a handle or object, and then touch your mouth. What are the symptoms of COVID-19? Some people have no symptoms or mild symptoms. Symptoms may appear 2 to 14 days after contact with the virus. Symptoms can include: Fever Coughing Trouble breathing What are possible complications from COVID-19? In many cases, this virus can cause infection (pneumonia) in both lungs. In some cases, this can cause . How is COVID-19 diagnosed? Your healthcare provider will ask about your symptoms. He or she will also ask about your recent travel and contact with sick people. Testing for the virus is only done through the CDC. If yourhealthcare provider thinks you may have COVID- 19, he or she will work with your local health department and the CDC on testing. Follow all instructions from your healthcare provider. COVID-19 is diagnosed by: Nasal and throat swab. A cotton-tipped swab is wiped inside your nose or throat. This is done to check for viruses in your nasal mucus. Sputum culture. A small sample of mucus coughed from your lungs (sputum) is collected if you have a cough. It is checked for the virus. How is COVID-19 treated? There is currently no medicine to treat the virus. Treatment is done to help your body while it fights the virus. This is known as supportive care. Supportive care may include: Pain medicine. These include acetaminophen and ibuprofen. They are used to help ease pain and reduce fever. Bed rest. This helps your body fight the illness. For severe illness, you may need to stay in the hospital. Care during severe illness may include: IV (intravenous) fluids.These are given through a vein to help keep your body hydrated. Oxygen. Supplemental oxygen or ventilation with a breathing machine (ventilator) may be given. This is done to keep enough oxygen in your body. Are you at risk for COVID-19? If youve been to a place where people have been sick with this virus, you are at risk for infection. You are at risk if you: Recently traveled to an affected area Had contact with a sick person who recently traveled to this area Had contact with a person who was diagnosed with COVID-19 How can COVID-19 be prevented? There is no vaccine yet. The best prevention is to not have contact with the virus. The CDC advises that people should not travel to areas where there are C OVID-19 outbreaks right now for any reason that is not urgent. To help prevent spreading the infection, wash your hands often, or use an alcohol-basedhand welcome hostess. If you are in an area with COVID-19: Wash your hands often. Or use an alcohol-based hand welcome hostess often. Only touch your eyes, nose, or mouth with clean hands. Dont have contact with people who are sick. Follow local instructions about being in public. For example, you may be told to not use public transport for a period of time. Stay away from markets that have live or animals. Wash your hands after touching any animals. Don't touch animals that may be sick. Dont share eating or drinking tools with sick people. Dont kiss someone who is sick. Clean surfaces often with disinfectant. If you were in an area with COVID-19 in the last 14 days: Call your healthcare provider. He or she can talk with local health staff to see what action may be needed. Follow all instructions from your provider. Take your temperature every morning and evening for at least 14 days. This is to check for fever. Keep a record of the readings. Keep watch for symptoms of the virus. Tell your provider right away if you have symptoms. If you were in an area with COVID-19 and have a fever or other symptoms: Dont panic. Keep in mind that other illnesses can cause similar symptoms. Stay away from work, school, and public places. Limit physical contact with family members. Don't kiss anyone or share eating or drinking utensils. Clean surfaces you touch with disinfectant. This is to help prevent the virus from spreading. Call your healthcare provider. Explain that you have been exposed to COVID-19 and have symptoms. Do this before going to any hospital. Wait for instructions. Keep in mind that healthcare staff may wear protective equipment such as masks, gowns, gloves, and eye protection. You may be put in a separate room. This is to prevent the possible virus from spreading. Tell the healthcare staff about recent travel. This includes local travel on public transport. Staff may need to find other people you have been in contact with. Follow all instructions the healthcare staff give you. If you have been diagnosed with COVID-19 Follow all instructions from your healthcare provider. Dont leave your home, except to get medical care. Call your healthcare providers office before going. They can prepare and give you instructions. This will help prevent the virus from spreading. Dont go to work, school, or public areas. Dont use public transport or taxis. Stay away from other people in your home. Have them wear face masks around you. Dont share household items or food. Wear a face mask if you can. This includes at home or in a medical facility. Cover your face with a tissue when you cough or sneeze. Throw the tissue away. Wash your hands. Wash your hands often. Caregivers should: Follow all instructions from healthcare staff. Wear a face mask and protective clothing as advised. Wash hands often. Keep track of the sick persons symptoms. Clean surfaces, fabrics, and laundry thoroughly. Keep other people away from the sick person. When to call your healthcare provider Call your healthcare provider: If youve recently traveled and have symptoms If you have been diagnosed with COVID-19 and your symptoms are worse To learn more To find out more about COVID-19, visit the CDC website at www.cdc.gov/coronavirus/2019-ncov/index.html. The [employer]. [address] [place] [address], [place] [address]. All rights reserved. This information is not intended as a substitute for professional medical care. Always follow your healthcare professional's instructions. This information has been adapted from [employer] Pending Studies at Discharge: Yes Stand-Alone Forms: [facility] [employer], Smoking Cessation Medications and DC Order Prescriptions: New prednisone 20 mg tablet 40 mg PO DAILY 5 Days Qty: 10 RF: 0 azithromycin 250 mg tablet 250 mg PO DAILY 4 Days Qty: 4 RF: 0 Continued trazodone 50 mg tablet 50 mg PO HS RF: 0 omeprazole 20 mg capsule,delayed release(DR/EC) 20 mg PO HS RF: 0 Excedrin Migraine 250-250-65 mg Tablet 2 tab PO UD PRN (Reason: Headache) RF: 0 albuterol sulfate 90 mcg/actuation HFA aerosol inhaler 2 puff inhalation Q4H PRN (Reason: shortness of breath or wheezing) Qty: 6.7 RF: 0 Discharge Orders: Discharge Order (Routine); Ordered 10/13/20 Ordered By: Dagoberto Hoyt Admission Data Admit Date/Time: 10/13/20 00:32 Attending Provider: Dagoberto Hoyt Admit Provider: Fransisco Reaves Primary Care Provider: Florencio Lema Other Providers: Fransisco Reaves Other Interventions: Discharge Summary Assessment (RN) Last Done: 10/13/20 13:42 Coding Level of Care Code D/C Day Management >30 mins Diagnoses Pneumonia due to COVID-19 virus U07.1; J12.89 Hypoxia R09.02 GERD (gastroesophageal reflux disease) K21.9 Insomnia G47.00 Migraine G43.909
--- NOTE | 2020-10-13 19:36 | Electrocardiogram Report ---
Test Reason : Blood Pressure : / mmHG Vent. Rate : 087 BPM Atrial Rate : 087 BPM P-R Int : 166 ms QRS Dur : 086 ms QT Int : 330 ms P-R-T Axes : 036 -16 028 degrees QTc Int : 397 ms Normal sinus rhythm Nonspecific T wave abnormality When compared with ECG of 06-OCT-2020 13:12, Vent. rate has increased BY 30 BPM Confirmed by Deven Alcaraz ([id number]) on 10/13/2020 7:36:42 PM Referred By: Florencio Lema Confirmed By:Deven Alcaraz
[2020-10-13] MEDS ORDERED: PANTOprazole 40 MG TAB PO SCH (21:00)
[2020-10-13] MEDS ORDERED: traZODone HCL 50 MG TAB PO SCH (21:00)
== END 2020-10-13 14:25 | disposition home health service (06) | DRG 177 ==
LOC: ED 18:38 → 2N 10-13 00:32 → SUATTDRO 10-13 00:32 → INTOOBSV 10-13 00:32 → 2N 10-13 01:41